=== PATIENT | male | born 1965 | race Asian ===

== ENCOUNTER 2017-09-21 08:41 | Emergency (ER) | payer MEDICARE, OTHER ==
[2017-09-21] MEDS: ALBUTEROL 0.5% (NEB) 2.5 MG/0.5 ML AMP INH (09:27)
[2017-09-21] MEDS: IPRATROPIUM (NEB) 0.5 MG/2.5 ML AMP INH (09:27)
[2017-09-21] MEDS: predniSONE 20 MG TAB PO (11:11)
== END 2017-09-21 12:58 | disposition home or self-care (01) ==
LOC: E/R 08:41
DX: J45.901 Unspecified asthma with (acute) exacerbation (principal)
CPT/HCPCS: 71045; 94644; 99284-25

== ENCOUNTER 2017-12-23 15:12 | Emergency (ER) | payer MEDICARE, OTHER ==
[2017-12-23] MEDS: LIDOCAINE 1% (MDV) 10 ML INJ INFIL (16:34)
== END 2017-12-23 16:44 | disposition home or self-care (01) ==
LOC: FTE 15:12
DX: K64.5 Perianal venous thrombosis (principal); I10 Essential (primary) hypertension
CPT/HCPCS: 99284